=== PATIENT | male | born 1945 | race Caucasian/White ===

== ENCOUNTER → 2023-07-08 14:04 | Outpatient (REF) | payer MEDICARE, SELFPAY | LOC: RCS 14:04 | PROVIDERS: ATTENDING PHYSICIAN Internal Medicine Cardiovascular Disease; FAMILY PHYSICIAN Physician Assistant | DX: I50.22 Chronic systolic (congestive) heart failure (principal); I48.0 Paroxysmal atrial fibrillation; I25.5 Ischemic cardiomyopathy; E78.5 Hyperlipidemia, unspecified; I10 Essential (primary) hypertension; R06.02 Shortness of breath | CPT/HCPCS: 93306 ==

== ENCOUNTER → 2023-12-21 14:58 | Outpatient (REF) | payer MEDICARE, SELFPAY | LOC: RAD 14:58 | PROVIDERS: ATTENDING PHYSICIAN Internal Medicine | DX: R10.32 Left lower quadrant pain (principal) | CPT/HCPCS: 74018 ==

== ENCOUNTER → 2024-02-10 17:21 | Outpatient (REF) | payer MEDICARE, SELFPAY | LOC: RCS 17:21 | PROVIDERS: ATTENDING PHYSICIAN Internal Medicine Cardiovascular Disease; FAMILY PHYSICIAN Physician Assistant | DX: I50.22 Chronic systolic (congestive) heart failure (principal) | CPT/HCPCS: 93306; 93356 ==

== ENCOUNTER → 2024-03-01 10:14 | Outpatient (REF) | payer MEDICARE, SELFPAY | LOC: RAD 10:14 | PROVIDERS: ATTENDING PHYSICIAN Internal Medicine Cardiovascular Disease; FAMILY PHYSICIAN Physician Assistant | DX: I10 Essential (primary) hypertension (principal) | CPT/HCPCS: 78803; A9538 ==

== ENCOUNTER → 2024-05-20 09:54 | Day surgery (SDC) | payer MEDICARE, SELFPAY ==
[2024-05-20 11:06] LABS: Glucose - Point of Care 145 mg/dl (70-99)
--- NOTE | 2024-05-20 11:21 | ITS.CL.CARDI ---
Aws Consultant - Cardioversion
Cardioversion
Procedure Report:
Date of Procedure: 05/20/24
Procedure: Cardioversion
Indication: Symptomatic atrial fibrillation
Performing Physician: Lizandro Turner MD
Technique: The patient was brought to the holding area. Signed informed consent was obtained. A time out was called and performed. The patient was anesthetized by the anesthesia service. Anticoagulation status was reviewed and appropriate. R2 pads
were placed anteriorly and posteriorly. After DEMETRIO revealed no LA appendage thrombus, A 200 J synchronized biphasic shock restored atrial paced rhythm without significant bradycardia. There were no complications.
Conclusion: Uncomplicated cardioversion from atrial fibrillation to atrial paced rhythm.
Recommendation: Routine post cardioversion care. Continue longterm anticoagulation.
== END ==
LOC: CATH 09:54
PROVIDERS: ATTENDING PHYSICIAN Internal Medicine Cardiovascular Disease; FAMILY PHYSICIAN Physician Assistant; OTHER PHYSICIAN Internal Medicine Cardiovascular Disease
DX: I08.3 Combined rheumatic disorders of mitral, aortic and tricuspid valves (principal); I48.0 Paroxysmal atrial fibrillation; I11.0 Hypertensive heart disease with heart failure; I50.22 Chronic systolic (congestive) heart failure; I25.10 Atherosclerotic heart disease of native coronary artery without angina pectoris; E78.5 Hyperlipidemia, unspecified; E11.9 Type 2 diabetes mellitus without complications; Z87.891 Personal history of nicotine dependence; Z79.84 Long term (current) use of oral hypoglycemic drugs; Z79.01 Long term (current) use of anticoagulants
CPT/HCPCS: 93312; 93320; 93325; 82962; 92960; 93005

== ENCOUNTER 2024-06-27 05:55 | Day surgery (SDC) | payer MEDICARE, SELFPAY ==
[2024-06-15 10:24] VITALS: BMI 36.0
[2024-06-15 10:52] LABS: % Basophils 0.6 % (0-2); % Eosinophils 5.1 % (0-6); % Immature Granulocytes 0.5 % (0-0.5); % Lymphocytes 13.1 % (20.5-51.1); % Monocytes 10.1 % (1.7-9.3); % Neutrophils 70.6 % (42.2-75.2); Absolute Eosinophils 0.3 10^3/uL (0-0.7); Absolute Lymphocytes 0.9 10^3/uL (1.2-3.4); Absolute Monocytes 0.7 10^3/uL (0.1-0.6); Absolute Neutrophils 4.7 10^3/uL (1.4-6.5); Hematocrit 31.2 % (39.0-52.0); Hemoglobin 10.1 g/dL (13.0-18.0); Mean Corp Hgb Conc. 32.4 g/dL (33.0-37.0); Mean Corpuscular Hgb 31.1 pg (27.0-31.0); Mean Platelet Volume 10.2 fL (7.4-10.4); Nucleated Red Blood Cells % 0 % (-); Platelet Count 185 10^3/uL (130-400); Red Blood Cell Count 3.25 10^6/uL (4.70-6.10); Red Cell Dist. Width 14.6 % (11.5-14.5); White Blood Cell Count 6.6 10^3/uL (4.8-10.8)
[2024-06-15 10:59] LABS: INR 1.75; PT 20.9 Sec (11.4-14.6)
[2024-06-15 11:44] LABS: ALT (SGPT) 25 U/L (0-50); AST (SGOT) 20 U/L (17-59); Albumin 4.5 g/dl (3.5-5.0); Alkaline Phosphatase 67 U/L (38-126); Blood Urea Nitrogen 20 mg/dl (9-20); Calcium 8.9 mg/dl (8.4-10.2); Carbon Dioxide 26 mmol/L (22-30); Chloride 101 mmol/L (98-107); Estimated Creatinine Clearance 70 ml/min; Glucose 107 mg/dl (70-99); Sodium 139 mmol/L (135-145); Total Bilirubin 1.1 mg/dl (0.2-1.3); Total Protein 6.8 g/dl (6.3-8.2); eGFR > 60.00
[2024-06-16 14:53] LABS: NT-proBNP 3110 pg/ml
--- NOTE | 2024-06-16 15:14 | W.PN.UPDATE ---
Update Note
Progress Note Update
Chest CT:06/15/24-PCP made aware
Multiple small bilateral probably benign pulmonary nodules which, if clinically indicated, could be further evaluated with noncontrast CT in 12 months
[2024-06-24 11:03] LABS: Hemoglobin 11.4 g/dL (13.0-18.0); Mean Corp Hgb Conc. 31.7 g/dL (33.0-37.0); Mean Corpuscular Hgb 30.2 pg (27.0-31.0); Mean Corpuscular Volume 95.2 fL (80.0-94.0); Platelet Count 294 10^3/uL (130-400); Red Blood Cell Count 3.78 10^6/uL (4.70-6.10); Red Cell Dist. Width 14.3 % (11.5-14.5); White Blood Cell Count 10.7 10^3/uL (4.8-10.8)
--- NOTE | 2024-06-24 11:14 | W.PN.UPDATE ---
Update Note
Progress Note Update
Patient in acute CHF during previous pre-op visit. He additionally had viral respiratory infection. Increased his Lasix and asked him to re-present today.
Lungs CTA with no peripheral edema. Weight has decreased from 125.5kg to 117.9kg(down 16.72lbs).
06/16/24 weight 125.5kg (276.1lb) BNP 3110.0
06/24/24 weight 117.9kg (259.38lbs)--down 16.72lbs BNP 2530.0
-have checked CMP given increase in Lasix dose -BUN/Scr stable.
[2024-06-24 11:22] LABS: ALT (SGPT) 32 U/L (0-50); AST (SGOT) 30 U/L (17-59); Albumin 4.2 g/dl (3.5-5.0); Alkaline Phosphatase 73 U/L (38-126); Blood Urea Nitrogen 25 mg/dl (9-20); Carbon Dioxide 25 mmol/L (22-30); Chloride 102 mmol/L (98-107); Estimated Creatinine Clearance 70 ml/min; Glucose 129 mg/dl (70-99); Iron 77 ug/dl (49-181); Potassium 4.5 mmol/L (3.5-5.1); Sodium 138 mmol/L (135-145); Total Bilirubin 0.8 mg/dl (0.2-1.3); Total Protein 7.1 g/dl (6.3-8.2); eGFR > 60.00
[2024-06-24 11:30] LABS: NT-proBNP 2530 pg/ml
[2024-06-24 11:31] LABS: Percent Saturation 22 % (20-50); Total Iron Binding Capacity 338 ug/dl (261-462)
[2024-06-24 11:58] LABS: Ferritin 27.4 ng/ml (17.9-464.0)
[2024-06-24 12:12] LABS: Vitamin B12 508 pg/ml (239-931)
[2024-06-27] VITALS (13 sets, daily range): BP systolic 95–128; BP diastolic 45–77; BMI 33.1
[2024-06-27 07:17] LABS: Glucose - Point of Care 96 mg/dl (70-99)
[2024-06-27] MEDS: FLOMAX 0.4 MG PO ×2 (07:28→19:36)
[2024-06-27] MEDS: NSS 500 IV (07:32)
[2024-06-27 09:17] LABS: ACT-LR - POC 269 Seconds (116-155)
[2024-06-27 09:25] LABS: Glucose - Point of Care 93 mg/dl (70-99)
[2024-06-27 09:35] LABS: ACT-LR - POC 263 Seconds (116-155)
[2024-06-27 10:00] LABS: ACT-LR - POC 337 Seconds (116-155)
[2024-06-27 10:15] LABS: ACT-LR - POC 343 Seconds (116-155)
[2024-06-27 10:37] LABS: ACT-LR - POC 366 Seconds (116-155)
[2024-06-27] MEDS: LASIX 40 MG IV (11:22)
[2024-06-27 13:11] LABS: Glucose - Point of Care 193 mg/dl (70-99)
--- NOTE | 2024-06-27 13:13 | ITS.CL.ABL ---
Flour Tester - Ablation
Ablation
Procedure Report:
ELECTROPHYSIOLOGIC STUDY AND POSSIBLE ABLATION
DATE: June 27, 2024
Primary Care Provider: LUCAS Hernandez
Primary Header Up: Dr Sherlyn Gould
INDICATION:
Symptomatic Atrial Fibrillation.
Persistent
HISTORY: See H and P.
Symptomatic AF, poorly controlled with attempted medical therapy.
He has an extensive and complex past medical history which includes heart failure with reduced ejection fraction, coronary artery disease, INOCULATOR defibrillator, ventricular tachyarrhythmias with prior VT ablation, recently diagnosed ATTR cardiac
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
He has experienced recurrent symptomatic persistent atrial fibrillation despite antiarrhythmic drug therapy with amiodarone.
Transesophageal echocardiogram from May 20, 2024 finds LVEF of 35% with inferior hypokinesis as well as mild global hypokinesis. Moderately dilated left atrium and mildly dilated right atrium. Mild to moderate mitral and aortic
insufficiencies. Moderate to severe tricuspid insufficiency. Moderate to severe aortic plaque, no left atrial appendage thrombus.
HAS-BLED: 1
Age
CHADSVASc: 6
CHF, NYHA Class 3, LVEF 35, HFrEF
HTN
Age
DM
Vascular Dz: prior DE
PRESENTING RHYTHM: AF
HISTORY: See H and P.
Symptomatic AF, poorly controlled with attempted medical therapy.
ANTIARRHYTHMIC DRUG: Amiodarone
ANTICOAGULATION: Xarelto
'TIME-OUT': called and confirmed.
SEDATION/ANESTHESIA: provided via the anesthesia department using general anesthesia.
PROCEDURE:
Ultrasound Guidance with real-time visualization of needle insertion and vessel patency performed by pa for femoral venous Vascular Access. Images were taken and saved for the patient's permanent record. Imaging findings typical femoral venous
anatomy. Direct visualization of needle puncture into the femoral vein was observed and recorded.
Interrogation of the [employer] INOCULATOR defibrillator was performed finding stable function of the defibrillator and lead system. VF detections were programmed off and bradycardia pacing remained DDDR 70�110
A decapolar CS catheter was placed within the CS for mapping and pacing.
The intracardiac ultrasound catheter was positioned in the RA for continuous intracardiac ultrasound imaging.
Heparin bolus and infusion to target ACT at 300 -350 seconds was administered. Transseptal puncture was performed. This entailed advancing a sheath with dilator into the superior vena cava and withdrawing both (monitoring intracardiac ultrasound,
fluoroscopy and tip pressure) with the tip oriented toward the atrial septum. The fossa ovalis was engaged (indicated by sudden displacement of the sheath tip as well as tenting of the fossa seen on intracardiac ultrasound).
Transseptal puncture was performed. Left atrial catheter position was confirmed by echocardiographic imaging, pressure monitoring (LA mean pressure 17 mm Hg) and fluoroscopy. The sheath was advanced over the dilator and positioned in the left
atrium.
The [employer] multipolar mapping/ablation Sphere-9 catheter was positioned through the transseptal sheath for high density mapping.
Geometry and voltage mapping was performed using the [employer] mapping system for three-dimensional electroanatomical mapping.
Catheter positioning was guided and confirmed using both I.C.E. and fluoroscopy.
There is marked fractionation and overall paucity of mappable atrial electrograms throughout the posterior wall of the left atrium and the antral areas of the pulmonary veins (note, history of cardiac amyloidosis)
PV isolation approach was used to electrically isolate each PV ostia (LSPV, LIPV, RSPV, RIPV).
Additional energy applications/additional ablation set was required to accomplish wide area circumferential ablation around each of the pulmonary vein sets and additionally ablation to accomplish LA posterior wall ablation.
Cardioversion restored sinus rhythm and mapping confirmed electrical isolation.
Programmed electrical stimulation was able to induce a left atrial tachycardia at cycle length 420 ms.
Electroanatomical activation mapping as well as entrainment pacing/mapping defines mitral annular flutter (counterclockwise).
Ablation with the sphere-9 catheter consisted of delivery of RF energy application close to the mitral valve annulus along the line from the mitral valve annulus to the left inferior pulmonary vein. Pulsed electric field energy was delivered at the
mid annulus up towards the ostium of the left inferior pulmonary vein and during these energy deliveries, the tachycardia terminated. Additional applications were given along the line to ensure block at the mitral valve annulus/isthmus.
Programmed electrostimulation was repeated and failed to induce any sustained arrhythmias.
Note, after several deliveries of pulse electric field energy, it was noted that there is complete inhibition of pacing output. Patient is pacer dependent therefore this resulted in several seconds of asystole with every energy delivery. The
device was reprogrammed to VVI during the remainder of ablation.
At the end of the study the INOCULATOR defibrillator is reinterrogated and found to have normal function of the defibrillator and lead system. Reprogramming was then performed. VF and VT detections were programmed on. Bradycardia pacing was also
reprogrammed to DDDR 70-110.
Furthermore there is no change in the fluoroscopic appearance of the leads once all the temporary catheters have been removed from the heart.
I.C.E. :
Pre-Ablation Post-Ablation
LVEF: 15-20 % 15-20 %
WMA: none none
Pericardial effusion: none none
COMPLICATIONS:
None
SUMMARY:
- Mapping and ablation to isolate the PVs (PVI).
- Additional AF ablation set after PVI (Addn abl set).
- Mapping and ablation of second tachycardia (LA mitral valve annular flutter)
- 3-D Electroanatomical Mapping
- Intracardiac Ultrasound
- Ultrasound guidance for vascular access
- Interrogation and reprogramming of INOCULATOR-D
*There is marked atrial myopathy with extensive atrial scarring on electrophysiologic mapping. This is consistent with his diagnosis of cardiac amyloidosis.
Post ablation, I discussed today's findings and results with the patient's , Maci.
RECOMMENDATIONS:
- Observe in monitored bed.
- Maintain oral anticoagulation. The risk of left atrial thrombus in cardiac amyloidosis is high and is independent of [id number]-RCKt score.
Given his dx of cardiac amyloidosis as well as his very high [id number] score he should remain on lifelong oral anticoagulation for thromboembolic risk reduction regardless of AF recurrences.
- Continue amiodarone
- Office visit with me has been scheduled for September 28, 2024.
- Continue cardiovascular care with Dr Sherlyn Gould
Copy to: Dr Sherlyn Gould
--- NOTE | 2024-06-27 13:37 | PTCARENOTE ---
Assumee care of pt upon tsf from CCL post PVI. Pt arrives awake and alert, Ox3. VSS, CM shows 100% A/V pacing, POX 97% on RA. Right femoral site remains CDI, no hematoma noted, DP's by dopp. Left radial site CDI. Pt made aware of activity
restrictions. He denies any pain or discomfort at this time.
--- NOTE | 2024-06-27 14:49 | CM ---
spoke to pt in room, he is prev indep, lives with his in a 2 story home with no steps to enter. he denies any dc planning needs or dme's. plan is for dc to home when medically stable.
[2024-06-27 15:22] LABS: Glucose - Point of Care 180 mg/dl (70-99)
[2024-06-27 17:24] LABS: Glucose - Point of Care 266 mg/dl (70-99)
[2024-06-27] MEDS: ZETIA 10 MG PO (17:52)
[2024-06-27] MEDS: LIPITOR 40 MG PO (17:52)
[2024-06-27] MEDS: XARELTO 20 MG PO (17:53)
[2024-06-27] MEDS: MICRONASE 5 MG PO (17:53)
[2024-06-27] MEDS: SINGULAIR 10 MG PO (17:53)
[2024-06-27] MEDS: GLUCOPHAGE 1000 MG PO (17:53)
[2024-06-27] MEDS: XALATAN OPHTHALMIC SOLUTION 1 DROP BOTH EYES (17:54)
[2024-06-27] MEDS: PACERONE 100 MG PO (19:36)
[2024-06-27] MEDS: ENTRESTO 24 MG/26 MG 1 TAB PO (19:36)
[2024-06-27] MEDS: COREG 3.125 MG PO (19:36)
--- NOTE | 2024-06-27 20:00 | PTCARENOTE ---
report received from previous RN, assumed care of pt. walking rounds done, pt in chair, AAOx4. pt denies any pain. VSS. AV paced on monitor, HR 70s. right groin dressing CDI, no hematoma or oozing noted. POX 97% on room air. PIV intact and patent.
see worklist for full assessment, VS, and interventions. pt resting comfortably w call conklin in reach.
[2024-06-27] MEDS: NSS IV (20:34)
[2024-06-28 04:16] VITALS: BP 121/69
--- NOTE | 2024-06-28 04:30 | PTCARENOTE ---
VSS, no changes in assessment. AAOx4. AV paced, HR 80s. POX 99% on room air. right groin CDI. AM labs drawn and sent. EKG done. pt sleeping between care.
[2024-06-28 05:29] LABS: Blood Urea Nitrogen 28 mg/dl (9-20); Carbon Dioxide 22 mmol/L (22-30); Chloride 103 mmol/L (98-107); Estimated Creatinine Clearance 81 ml/min; Glucose 155 mg/dl (70-99); Magnesium 1.9 mg/dl (1.6-2.3); Potassium 4.5 mmol/L (3.5-5.1); Sodium 137 mmol/L (135-145); eGFR > 60.00
[2024-06-28 05:46] LABS: Hematocrit 29.5 % (39.0-52.0); Hemoglobin 9.6 g/dL (13.0-18.0); Mean Corp Hgb Conc. 32.5 g/dL (33.0-37.0); Mean Corpuscular Hgb 30.6 pg (27.0-31.0); Mean Corpuscular Volume 93.9 fL (80.0-94.0); Mean Platelet Volume 10.4 fL (7.4-10.4); Platelet Count 218 10^3/uL (130-400); Red Blood Cell Count 3.14 10^6/uL (4.70-6.10); Red Cell Dist. Width 14.4 % (11.5-14.5); White Blood Cell Count 9.4 10^3/uL (4.8-10.8)
[2024-06-28 06:52] VITALS: BP 126/69
[2024-06-28] MEDS: ENTRESTO 24 MG/26 MG 1 TAB PO (08:10)
[2024-06-28] MEDS: GLUCOPHAGE 1000 MG PO (08:10)
[2024-06-28] MEDS: MICRONASE 5 MG PO (08:11)
[2024-06-28] MEDS: PACERONE 100 MG PO (08:11)
[2024-06-28] MEDS: FLOMAX 0.4 MG PO (08:12)
[2024-06-28] MEDS: COREG 3.125 MG PO (08:12)
[2024-06-28] MEDS: PROSCAR 5 MG PO (08:14)
[2024-06-28] MEDS: JANUVIA 100 MG PO (08:17)
[2024-06-28] MEDS: NON-FORMULARY ITEM 61 MG PO (08:17)
[2024-06-28] MEDS: NSS IV (08:28)
--- NOTE | 2024-06-28 09:28 | W.PN.CARDCBS ---
Today's Communication / Plan
-
Continue xarelto, amiodarone
resume lasix this morning
followup with [facility] in [address] Plaat thereafter
home today
Impression / Plan
-
PCP: Mary Franco PA-C
CDY: Sherlyn Gould MD
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
Presents now with symptomatic persistent AF, failed amiodarone and cardioversions. s/p PFA as well as LA MV annular flutter ablation.
IMPRESSION:
Persistent AFib
s/p PFA/Mitral flutter ablation, 06/27/24
Chronic systolic HFrEF 35%
Ischemic cardiomyopathy
Sustained VT w/3 prior VT ablations
Bi-V ICD implant
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
ATTR Cardiac Amyloidosis
HTN
HLD
DM
Chronic anemia
Pulmonary nodules
BPH
Asthma
PLAN:
persistent AF, now s/p PFA/mitral flutter ablation
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
Given amyloidosis dx and very high [id number] score of 6- should remain on lifelong OAC for thromboembolic risk reduction
Xarelto resumed last evening, continue amiodarone
Tele- AV paced 70s
right groin site stable
40mg IV lasix post procedure for elevated LA pressure 17 and 1800cc fluid intraop- good diuresis overnight
will resume daily lasix as before
complained of 'restless leg' type symptoms overnight- involuntary leg movement and itching- thought it was r/t propofol
this is unlikely as he only got propofol once at beginning of case. Discussed with Dr. Castillo as well.
Followup at [facility] In [address] Plata thereafter
home today
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
Subjective
Date of Service: June 28, 2024
Denies cp/palps/dyspnea
groin site without pain
c/o 'restless leg and involuntary leg movements' last evening as well as back/torso itching- brief episodes
Objective
Labs:
06/28/24 04:21
06/28/24 04:21
Labs
Hgb 9.6 g/dL (13.0-18.0) L 06/28/24 04:21
Hct 29.5 % (39.0-52.0) L 06/28/24 04:21
Plt Count 218 10^3/uL (130-400) D 06/28/24 04:21
PT 20.9 Sec (11.4-14.6) H 06/15/24 10:34
INR 1.75 06/15/24 10:34
Sodium 137 mmol/L (135-145) 06/28/24 04:21
Potassium 4.5 mmol/L (3.5-5.1) 06/28/24 04:21
BUN 28 mg/dl (9-20) H 06/28/24 04:21
Creatinine 1.0 mg/dL (0.7-1.3) 06/28/24 04:21
Glucose 155 mg/dl (70-99) H 06/28/24 04:21
Vital Signs and I&O:
Vital Signs
Temp Pulse Resp BP Pulse Ox
97.7 F 79 20 126/69 98
06/28/24 06:52 06/28/24 07:00 06/28/24 06:52 06/28/24 06:52 06/28/24 08:00
Vital Signs
Temp Pulse Resp BP Pulse Ox
97.7 F 79 20 126/69 98
06/28/24 06:52 06/28/24 07:00 06/28/24 06:52 06/28/24 06:52 06/28/24 08:00
Intake & Output
06/26/24 06/27/24 06/28/24 06/29/24
06:59 06:59 06:59 06:59
Intake Total 1750 / 1750
Output Total 1000 / 1000
Balance 750 / 750
Physical Exam
Physical Exam
AAOx3, MAEE 5/5
RRR S1 S2 no murmurs
CTA bilat, non labored
soft abd, + bs
right groin site without ht/bleeding, non tender
bilat extremities w/palpable distal pulses, no edema
skin to torso intact, no rash, lesions or breakdown noted
--- NOTE | 2024-06-28 09:35 | PTCARENOTE ---
Pt received this am sitting out in the chair. Denies any pain or sob. Monitor shows AV paced, rate in the 80's. Right groin site dressing dry and intact, site soft and non tender. Pt discharged to home with his . Discharge instructions given and
reviewed with good understanding and all questions answered.
--- NOTE | 2024-06-28 11:23 | W.DS.TRANS ---
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
-
Discharge Instructions:
Sleep Apnea Risk High
Discharge Diagnosis/Procedures AFib, s/p ablation
Diet Low Cholesterol,Diabetic, Carb Controlled
Driving Restrictions No driving for 24 hours
Specialty Instructions Weigh Daily
Instructions:
Stand-Alone Forms: DC Instructions- Cath/EP Lab
Changes to Home Medications: No
Discharge Medications:
DC Medications w/original date entered in [employer]
atorvastatin 40 mg tablet 40 mg PO QPM High cholesterol 01/22/11
dutasteride 0.5 mg capsule 0.5 mg PO DAILY Urinary issue 01/22/11
montelukast 10 mg tablet 10 mg PO QPM asthma 03/16/16
ipratropium bromide 17 mcg/actuation HFA aerosol inhaler (Atrovent HFA) 2 puff inhalation R Q4HPRN PRN sob/wheezing 09/22/18
tamsulosin 0.4 mg capsule 0.4 mg PO BID Urinary issue 07/11/21
metformin 500 mg tablet 1,000 mg PO BID 09/01/21
carvedilol 3.125 mg tablet 3.125 mg PO BID Blood pressure 10/23/21
glyburide 5 mg tablet 5 mg PO BID 10/23/21
rivaroxaban 20 mg tablet (Xarelto) 20 mg PO QPM Blood clot prevention/tx 10/23/21
furosemide 20 mg tablet 20 mg PO DAILY Heart Failure #30 tabs 10/24/21
ezetimibe 10 mg tablet (Zetia) 10 mg PO QPM 05/20/24
tafamidis 61 mg capsule (Vyndamax) 61 mg PO DAILY 05/20/24
amiodarone 100 mg tablet 100 mg PO BID 06/09/24
fluticasone propionate 110 mcg/actuation HFA aerosol inhaler 1 puff inhalation PRN PRN SOB 06/09/24
magnesium 250 mg tablet 500 mg PO DAILY 06/09/24
melatonin 5 mg tablet 10 mg PO HS 06/09/24
sacubitril 24 mg-valsartan 26 mg tablet (Entresto) 1 tab PO BID 06/09/24
sitagliptin phosphate 100 mg tablet (Januvia) 100 mg PO DAILY 06/09/24
bimatoprost 0.01 % eye drops (Lumigan) 1 drp ophthalmic (eye) QPM 06/27/24
Home Medication Changes
Pending Results: No
== END 2024-06-28 09:37 | disposition home or self-care (01) ==
LOC: CATH 05:55
PROVIDERS: Nurse Practitioner; Physician Assistant Medical; ATTENDING PHYSICIAN Internal Medicine Cardiovascular Disease; FAMILY PHYSICIAN Physician Assistant; OTHER PHYSICIAN Internal Medicine Cardiovascular Disease
DX: I48.19 Other persistent atrial fibrillation (principal); I47.20 Ventricular tachycardia, unspecified; Z79.899 Other long term (current) drug therapy; Z79.01 Long term (current) use of anticoagulants; I11.0 Hypertensive heart disease with heart failure; I50.22 Chronic systolic (congestive) heart failure; I25.10 Atherosclerotic heart disease of native coronary artery without angina pectoris; E85.4 Organ-limited amyloidosis; I43 Cardiomyopathy in diseases classified elsewhere; Z95.810 Presence of automatic (implantable) cardiac defibrillator; E11.9 Type 2 diabetes mellitus without complications; I25.2 Old myocardial infarction; Z79.84 Long term (current) use of oral hypoglycemic drugs; E78.5 Hyperlipidemia, unspecified; I95.9 Hypotension, unspecified; Z87.891 Personal history of nicotine dependence; D64.9 Anemia, unspecified; G47.00 Insomnia, unspecified; N40.0 Benign prostatic hyperplasia without lower urinary tract symptoms; I08.2 Rheumatic disorders of both aortic and tricuspid valves; Z79.02 Long term (current) use of antithrombotics/antiplatelets
CPT/HCPCS: C1766; C1769; C1894; C1730; C1892; C1759; C1733; 36415; 75572; 76937; 80048; 80053; 82607; 82728; 82962; 83540; 83550; 83735; 83880; 85025; 85027; 85347; 85610; 86850; 86900; 86901; 93005; 93655; 93656; 93657; Q9967

== ENCOUNTER 2024-09-16 14:36 | Emergency (ER) | payer MEDICARE, SELFPAY ==
[2024-09-16 14:39] VITALS: BP 122/70
--- NOTE | 2024-09-16 14:50 | ED.GENMED ---
History of Present Illness
General
Chief Complaint: Head Injury
Source: patient and spouse
Exam Limitations: none
Time Seen by Provider: 09/16/24 14:43
History of Present Illness
History of Present Illness:
79yoM with a history of atrial fibrillation on Xarelto, coronary artery disease, CHF, hypertension, hyperlipidemia, and diabetes presenting with his for evaluation after a head injury. Patient was doing some outdoor work on his pool less than
an hour ago when he tripped and fell forward. He struck his head/right side of forehead against the deck. There was no loss of consciousness. He sustained abrasions to his right eyebrow. He denies any eye injury, foreign body sensation,
vomiting, dizziness, neck pain. Tdap reported to be up to date.
Past History
Past History
ED Past Medical History: Arrthythmia (afib; paroxysmal ventricular tachycardia), Asthma, CAD, CHF, HTN, Hypercholesterolemia, NIDDM, MT, Psychiatric (PTSD) and Other (Arthritis, BPH, kidney stones)
ED Past Surgical History: Cardiac (AICD, V. tach ablation November 2020), Orthopedic and Other (Patient has had a pacer internal defibrillator placed, and a cardiac catheterization)
Social History
Tobacco: Former smoker
Alcohol: Occasional
Drug: None
Personal:
Living: with family
Employment: Retired
Family History
Family History: Other (Noncontributory)
Phy Exam
General Physical Exam
General Presentation: well appearing and no apparent distress
General Skin: warm and dry
General Habitus: normal
General Mental: alert
ENT Exam
ENT Exam: TM's normal (No hemotympanum ) and other (Small hematoma noted to R eyebrow with abrasions. No nasal tenderness or epistaxis. No cervical spine tenderness.)
Eye Exam
Eye Exam: PERRL and EOMI
Pulmonary Exam
Pulmonary Exam: no respiratory distress
Neurological Exam
Neurological Exam: alert
Lucia Coma Scale
Eye Opening: Spontaneous
Verbal Response: Oriented
Motor Response: Obeys Commands
GCS Total Score: 15
Skin Exam
Skin Exam: normal color and warm/dry
Psychiatric Exam
Psychiatric Exam: normal mood/affect
Course
Orders/Labs/Results
Orders:
Orders
09/16/24 14:49
CT Cervical Spine W/o Iv Contr Urgent
Comment:
Reason For Exam: fall, head injury
CT Head W/o Iv Contrast Urgent
Comment:
Reason For Exam: fall, head injury
Ice Pack-Treatment DIRECTED
Location: R eyebrow
Acetaminophen [Tylenol] 1,000 mg PO NOW STA
Vital Signs
Initial and Last Documented VS:
Initial Vital Signs
Temp Pulse Resp BP
97.7 F 84 15 122/70
09/16/24 14:39 09/16/24 14:39 09/16/24 14:39 09/16/24 14:39
Last Documented Vital Signs
Temp Pulse Resp BP Pulse Ox
97.7 F 76 18 126/78 99
09/16/24 14:39 09/16/24 16:38 09/16/24 16:38 09/16/24 16:38 09/16/24 16:38
MDM/Problems Addressed
Differential Diagnosis Includes:
79yoM here for a head injury. Tripped and struck head against his deck. No LOC. C/o headache. On Xarelto for afib. VSS. He is awake, alert, with a GCS of 15. There is a small hematoma with abrasions to the R eyebrow region. Differential diagnosis
includes but is not limited to: hematoma, closed head injury, fracture, intracranial hemorrhage
Initial ED plan: Check CT head and cervical spine. Tylenol and ice for symptoms.
*Critical Care Note
Total Time (30-74mins, 75-104mins- exclusive of procedures): Not Applicable
Update Note
Update Note:
Imaging negative for traumatic injuries. Patient eager to be discharged. Advised f/u with PCP and ED return precautions reviewed. Patient discharged in stable condition.
ED Attending Note
-
Portions of this chart may have been created with voice recognition software.� Occasional wrong word or��sound alike� substitutions may have occurred due to the inherent limitations of voice recognition software.
Discharge Plan
Departure
Patient Disposition: Home (Routine Discharge)
Date of Disposition: 09/16/24
Time of Disposition: 16:20
Patient with high blood pressure during this ER visit?: No
Discharge Problem:
Traumatic hematoma of right eyebrow, Closed head injury
Instructions: Head Injury in Adults (DC)
Prescriptions:
No Action
atorvastatin 40 MG tablet
40 mg PO QPM
dutasteride 0.5 MG capsule
0.5 mg PO DAILY
montelukast 10 MG tablet
10 mg PO QPM
Atrovent HFA 1 PUFF HFA aerosol inhaler
2 puff inhalation R Q4HPRN PRN (Reason: sob/wheezing)
tamsulosin 0.4 MG capsule
0.4 mg PO BID
metformin 500 MG tablet
1,000 mg PO BID
carvedilol 3.125 MG tablet
3.125 mg PO BID
glyburide 5 MG tablet
5 mg PO BID
Xarelto 20 MG tablet
20 mg PO QPM
furosemide 20 MG tablet
20 mg PO DAILY Qty: 30 11RF
ezetimibe [Zetia] 10 mg Tablet
10 mg PO QPM
Vyndamax 61 mg Capsule
61 mg PO DAILY
magnesium 250 mg Tablet
500 mg PO DAILY
fluticasone propionate 110 mcg/actuation Hfa Aerosol Inhaler
1 puff INHALATION PRN PRN (Reason: SOB)
amiodarone 100 mg Tablet
100 mg PO BID
Januvia 100 mg Tablet
100 mg PO DAILY
melatonin 5 mg Tablet
10 mg PO HS
Entresto 24-26 mg Tablet
1 tab PO BID
Lumigan 0.01 % Drops
1 drp OPHTHALMIC (EYE) QPM
Referrals:
Mary Franco PA-C [Primary Care Provider] -
Activity Restrictions/Additional Instructions:
Take Tylenol as needed for pain.
Please follow-up with your family doctor. Return to the ER with any worsening symptoms including severe pain, excessive vomiting, or change in mental status.
Interventions
Interventions:
*Risk Screen - Suicide Last Done: 09/16/24 14:39
*General Assessment Last Done: 09/16/24 14:39
*Neglect/Abuse Screening Last Done: 09/16/24 14:39
*ED- Fall Risk Assessment Last Done: 09/16/24 14:39
*Nursing Disposition Last Done: 09/16/24 16:39
ED- Neurological Assessment Last Done: 09/16/24 15:22
ED-Skin Assessment Last Done: 09/16/24 15:22
Discharge Date and Time
Discharge Date/Time: 09/16/24 16:41
Print Language: GUAMANIAN
[2024-09-16] MEDS: TYLENOL 1000 MG PO (15:15)
[2024-09-16 16:38] VITALS: BP 126/78
== END 2024-09-16 16:41 | disposition home or self-care (01) ==
LOC: EMR 14:36
PROVIDERS: EMERGENCY PHYSICIAN Emergency Medicine; PRIMARYCARE PHYSICIAN Physician Assistant
DX: S00.11XA Contusion of right eyelid and periocular area, initial encounter (principal); W01.198A Fall on same level from slipping, tripping and stumbling with subsequent striking against other object, initial encounter; E11.9 Type 2 diabetes mellitus without complications; E78.00 Pure hypercholesterolemia, unspecified; I11.0 Hypertensive heart disease with heart failure; I50.9 Heart failure, unspecified; I25.10 Atherosclerotic heart disease of native coronary artery without angina pectoris; I48.91 Unspecified atrial fibrillation; J45.909 Unspecified asthma, uncomplicated; Z79.01 Long term (current) use of anticoagulants; Z87.891 Personal history of nicotine dependence; Z95.810 Presence of automatic (implantable) cardiac defibrillator
CPT/HCPCS: 99284; 70450; 72125

== ENCOUNTER 2025-01-27 23:46 | Emergency (ER) | payer MEDICARE, SELFPAY ==
[2025-01-28] VITALS: BP 117/66
--- NOTE | 2025-01-28 00:28 | ED.GENMED ---
History of Present Illness
General
Chief Complaint: Ear Problem
Source: patient
Exam Limitations: none
Time Seen by Provider: 01/28/25 00:21
History of Present Illness
History of Present Illness:
79-year-old male presents complaining of pain out of the left ear starting 2 days ago. He went in with a cotton swab yesterday and noted some blood coming out of his ear. He noted persistent pain and swelling today. He is on Xarelto. No fevers.
The ear itself hurts as well. No other complaints
Past History
Past History
ED Past Medical History: Arrthythmia (afib; paroxysmal ventricular tachycardia), Asthma, CAD, CHF, HTN, Hypercholesterolemia, NIDDM, GA, Psychiatric (PTSD) and Other (Arthritis, BPH, kidney stones)
ED Past Surgical History: Cardiac (AICD, V. tach ablation November 2020), Orthopedic and Other (Patient has had a pacer internal defibrillator placed, and a cardiac catheterization)
Social History
Tobacco: Former smoker
Alcohol: Occasional
Drug: None
Personal:
Living: with family
Employment: Retired
Family History
Family History: Other (Noncontributory)
Phy Exam
Physical Exam
Physical Exam:
General: Well-appearing male no acute respiratory distress
HEENT normal cephalic right ear canal normal. The outer left ear is swollen and tender as it joins the scalp. The ear canal itself is also erythematous and swollen with dried blood at the base of the canal. The tympanic membrane is clearly
visualized without any injury. There are no insects or drainage. Neck is supple no adenopathy. The mastoid is nontender.
Skin: Surrounding skin is without erythema
Course
Orders/Labs/Results
Orders:
Orders
01/28/25 00:26
Ciprofloxacin HCl [Cipro] 1 dropperett LEFT EAR NOW STA
Doxycycline [Vibramycin] 100 mg PO NOW STA
Vital Signs
Initial and Last Documented VS:
Initial Vital Signs
Temp Pulse Resp BP Pulse Ox
98 F 83 20 117/66 98
01/28/25 00:00 01/28/25 00:00 01/28/25 00:00 01/28/25 00:00 01/28/25 00:00
Last Documented Vital Signs
Temp Pulse Resp BP Pulse Ox
98 F 83 20 117/66 98
01/28/25 00:00 01/28/25 00:00 01/28/25 00:00 01/28/25 00:00 01/28/25 00:00
MDM/Problems Addressed
Differential Diagnosis Includes:
Patient exam most consistent with external otitis. No evidence of mastoiditis clinically. Patient is diabetic and on a blood thinner. Will start with Cipro drops as well as doxycycline to cover. No indication for admission at this time stable
for discharge
*Pulse Oximetry
SaO2: 98
Oxygen Mode of Delivery: Room air
Patient hypoxic: no
*Critical Care Note
Total Time (30-74mins, 75-104mins- exclusive of procedures): Not Applicable
ED Attending Note
-
Portions of this chart may have been created with voice recognition software.� Occasional wrong word or��sound alike� substitutions may have occurred due to the inherent limitations of voice recognition software.
Discharge Plan
Departure
Patient Disposition: Home (Routine Discharge)
Date of Disposition: 01/28/25
Time of Disposition: 00:31
Patient with high blood pressure during this ER visit?: No
Discharge Problem:
External otitis
Instructions: Outer Ear Infection (DC)
Prescriptions:
New
doxycycline hyclate 100 mg capsule
100 mg PO BID Qty: 14 0RF
ciprofloxacin HCl 0.2 % dropperette
5 drp otic (ear) BID 7 Days Qty: 14 0RF
No Action
atorvastatin 40 MG tablet
40 mg PO QPM
dutasteride 0.5 MG capsule
0.5 mg PO DAILY
montelukast 10 MG tablet
10 mg PO QPM
Atrovent HFA 1 PUFF HFA aerosol inhaler
2 puff inhalation R Q4HPRN PRN (Reason: sob/wheezing)
tamsulosin 0.4 MG capsule
0.4 mg PO BID
metformin 500 MG tablet
1,000 mg PO BID
carvedilol 3.125 MG tablet
3.125 mg PO BID
glyburide 5 MG tablet
5 mg PO BID
Xarelto 20 MG tablet
20 mg PO QPM
furosemide 20 MG tablet
20 mg PO DAILY Qty: 30 11RF
ezetimibe [Zetia] 10 mg Tablet
10 mg PO QPM
Vyndamax 61 mg Capsule
61 mg PO DAILY
magnesium 250 mg Tablet
500 mg PO DAILY
fluticasone propionate 110 mcg/actuation Hfa Aerosol Inhaler
1 puff INHALATION PRN PRN (Reason: SOB)
amiodarone 100 mg Tablet
100 mg PO BID
Januvia 100 mg Tablet
100 mg PO DAILY
melatonin 5 mg Tablet
10 mg PO HS
Entresto 24-26 mg Tablet
1 tab PO BID
Lumigan 0.01 % Drops
1 drp OPHTHALMIC (EYE) QPM
Activity Restrictions/Additional Instructions:
Use 5 drops of the eardrops into the left ear twice a day. Take antibiotics by mouth twice a day. Return if worse otherwise follow-up with your doctor
Interventions
Interventions:
*Risk Screen - Suicide Last Done: 01/28/25 00:00
*General Assessment Last Done: 01/28/25 00:00
*Neglect/Abuse Screening Last Done: 01/28/25 00:00
*ED- Fall Risk Assessment Last Done: 01/28/25 00:00
*ED COVID-19 Vaccine History Last Done: 01/28/25 00:00
*ED Influenza Vaccine History Last Done: 01/28/25 00:00
Discharge Date and Time
Print Language: SETSWANA
[2025-01-28] MEDS: VIBRAMYCIN 100 MG PO (00:51)
[2025-01-28] MEDS: CIPRO 1 DROPPERETT LEFT EAR (00:51)
== END 2025-01-28 01:10 | disposition home or self-care (01) ==
LOC: EMR 23:46
PROVIDERS: EMERGENCY PHYSICIAN Student in an Organized Health Care Education/Training Program; FAMILY PHYSICIAN Physician Assistant
DX: H60.92 Unspecified otitis externa, left ear (principal); I48.91 Unspecified atrial fibrillation; J45.909 Unspecified asthma, uncomplicated; I25.10 Atherosclerotic heart disease of native coronary artery without angina pectoris; I11.0 Hypertensive heart disease with heart failure; I50.9 Heart failure, unspecified; E11.9 Type 2 diabetes mellitus without complications; E78.00 Pure hypercholesterolemia, unspecified; H60.90 Unspecified otitis externa, unspecified ear; N40.0 Benign prostatic hyperplasia without lower urinary tract symptoms; Z79.01 Long term (current) use of anticoagulants; Z87.442 Personal history of urinary calculi; Z87.891 Personal history of nicotine dependence; Z95.810 Presence of automatic (implantable) cardiac defibrillator
CPT/HCPCS: 99282